=== PATIENT | female | born 1980 | race Caucasian/White ===

== ENCOUNTER 2021-03-25 14:35 | Emergency (ER) | payer SELFPAY ==
[~2021-03-25] VITALS: Ht 162.6 cm; Wt 109.0 kg
[2021-03-25 14:46] VITALS: BP 134/98
== END 2021-03-25 18:21 | disposition left against medical advice (07) ==
LOC: ER 14:35
DX: Z53.21 Procedure and treatment not carried out due to patient leaving prior to being seen by health care provider (principal)